=== PATIENT | female | born 1970 | race Caucasian/White ===

== ENCOUNTER → 2019-04-15 11:03 | Outpatient (CLI) | payer OTHER, SELFPAY ==
--- NOTE | 2019-04-15 11:05 | DI.MRI.S_ITS ---
PROCEDURE: MR HEAD/BRAIN WO CON INDICATIONS: headaches + a symptom of R hand numbess new. TECHNIQUE: Noncontrast axial T1 spin echo, axial T2 fast spin echo, sagittal and axial FLAIR, coronal T2 fast spin echo, axial gradient echo, axial diffusion and ADC through the brain. COMPARISON: None. FINDINGS: Image quality: Excellent. CSF Spaces: Basal cisterns are patent. Ventricles are normal in size and shape. Brain: No intracranial masses. There is a small amount of curvilinear extra-axial high FLAIR signal intensity within the posterior parafalcine location within the midline, as well as overlying the left posterior superior parietal lobe. Small focus of elevated extra-axial FLAIR signal within the right posterior parafalcine location adjacent to the superior sagittal sinus is present. Lea/white matter interface is normal. There is a mild degree of patchy high FLAIR signal foci within the periventricular and subcortical white matter of the frontal and parietal lobes. Brainstem appears normal. Diffusion-weighted images demonstrate no acute ischemic insult. No chronic ischemic insults. There is focal loss of flow-void within the sagittal sinus postero-superiorly. Otherwise normal intravascular flow voids are present. Skull and face: Calvarium has normal marrow signal. Orbits appear normal. Sinuses: Sinuses and mastoids are clear. IMPRESSION: 1. 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 2. Small amount of extra-axial hemorrhage within the right parafalcine location adjacent to the superior sagittal sinus may also be present. 3. Mild degree of nonspecific white matter disease. Differential considerations include small vessel ischemic disease, diabetes mellitus, migraines, vasculitides, and demyelinating disorders, such as multiple sclerosis. 4. Findings discussed with Dr. Hernandez on 04.15.19 at 1245 hrs. Dictated by: Yoni Sparrow M.D. on 04/15/2019 at 12:31 Approved by: Yoni Sparrow M.D. on 04/15/2019 at 12:47
== END ==
PROVIDERS: Referring Provider Family Medicine; Visit Provider Family Medicine
DX: G43.109 Migraine with aura, not intractable, without status migrainosus (principal); R20.0 Anesthesia of skin; I67.6 Nonpyogenic thrombosis of intracranial venous system; I66.8 Occlusion and stenosis of other cerebral arteries
CPT/HCPCS: 70551